=== PATIENT | female | born 1965 | race Caucasian/White ===

== ENCOUNTER 2021-01-27 16:04 | Outpatient (REF) | payer BC, SELFPAY | END 2021-01-27 16:05 | disposition home or self-care (01) | LOC: HO.MRI 16:04 | PROVIDERS: PCP Internal Medicine; Visit Provider Internal Medicine | DX: Z13.89 Encounter for screening for other disorder (principal) ==

== ENCOUNTER 2021-05-26 10:55 | Emergency (ER) | payer OTHER, SELFPAY ==
--- NOTE | 2021-05-26 10:59 | ED_ITS ---
HPI - General Adult General Chief complaint: Wound/Laceration Stated complaint: lip lac/wound - work INJ Time Seen by Provider: 05/26/21 10:59 Source: patient and family Mode of arrival: ambulatory Limitations: no limitations History of Present Illness HPI narrative: 55 yo female here with trip and fall hitting face on file cabinet while working, landing on bilateral knees. NO LOC. Now c/o dizziness,right sided neck pain, bilateral knee pain, laceration to upper lip. Tetanus UTD. NO headache, vision changes, paresthesias, chest pain, abdominal pain, back pain, vomiting. Related Data Allergies Allergy/AdvReac Type Severity Reaction Status Date / Time penicillin V Allergy Unknown Verified 10/18/12 00:00 Penicillins [PCN] Allergy Unknown HIVES Unverified 11/21/19 16:02 Sulfa (Sulfonamide Allergy Unknown Verified 10/18/12 00:00 Antibiotics) Review of Systems Review of Systems: Yes all other systems are reviewed and are negative Constitutional: Constitutional: Reports no additional constitutional com plaints, Denies body ache(s), Denies chills, Denies fever(s), Denies headache(s) and Denies weakness Eyes: Eyes: Reports no additional eye complaints and Denies change in vision ENT: Reports system reviewed and no additional complaints, except as documented, Reports dizziness, Denies headache(s), Denies nasal congestion, Denies nasal discharge and Reports neck pain Cardiovascular: Cardiovascular: Reports no additional cardiovascular complaints, Denies chest pain, Denies leg edema and Denies dyspnea Respiratory: Respiratory: Reports no additional respiratory complaints, Denies cough and Denies dyspnea Gastrointestinal: Gastrointestinal: Reports no additional gastrointestinal complaints, Denies abdominal pain, Denies diarrhea, Denies nausea and Denies vomiting Genitourinary: Genitourinary: Reports no additional female genitourinary complaints and Denies urinary incontinence Musculoskeletal: Musculoskeletal: Reports no additional musculoskeletal complaints, Denies back pain, Reports arthralgias, Denies joint swelling, Reports neck pain, Denies numbness and Denies tingling Integumentary/Breasts: Skin/Breast: Reports system reviewed and no additional complaints, except as docu and Denies rash Comments: +laceration Neurologic: Reports system reviewed and no additional complaints, except as documented, Reports dizziness, Denies headache(s), Denies numbness, Denies tingling and Denies weakness [facility] Past Medical History Attestation statement: The following information was validated with the patient. Source: old records reviewed and nursing notes reviewed Social History Social History Advance Directives: No Advance Directives Information Provided: No Patient : No Physical Exam ED Vital Signs: Vital Signs - 24 hr 05/26/21 11:02 Temperature 98.7 F Pulse Rate 72 Respiratory Rate 16 Blood Pressure 155/84 H Pulse Oximetry 100 BMI result Body Mass Index 23.1 Const General: cooperative, healthy appearing, comfortable and no acute distress Orientation/consciousness: patient oriented x3 Limitations: no limitations HENMT Head: Yes normal to inspection, No Barragan's sign and No raccoon eyes Ears: hearing grossly normal bilaterally and TM's normal bilaterally General nose exam: Normal external nose present and no epistaxis Nose image: 1. 2cm laceration to the right upper lip which crosses to the desire border Face and sinus: Yes normal facial exam, Yes face symmetric, No crepitus, No ecchymosis, No erythema, No edema and No fluctuance Mouth: Normal oral and palatal mucosa present, tongue normal and no trismus Teeth and gingiva: dentition normal Throat: Yes posterior oropharynx normal, Yes tonsils normal and Yes uvula midline Eyes General: appearance normal, both eyes and all related structures Pupils: Equal, round and reactive pupils present Neck Other: No cervical midline tenderness, step offs or deformities There is some tenderness to the right side of the neck with no swelling, crepitus, ecchymosis noted. Neck: Yes normal visual inspection, Yes full ROM, Yes no lymphadenopathy and Yes no meningeal signs Chest Chest palpation & inspection: normal inspection of the chest Resp Effort & Inspection: normal respiratory effort Auscultation: clear to auscultation bilaterally Cardio Rate: regular rate Rhythm: regular rhythm Peripheral pulses: Peripheral pulses 2+ throughout GI Inspection: Yes normal to inspection Palpation (GI): Soft to palpation and nontender General: Yes no CVA tenderness Back/Spine/Pelvis Back: no CVA tenderness Thoracic/Lumbar Spine: thoracic and lumbar spine normal to inspection Skin General skin exam: no rashes or lesions noted Neuro General: patient oriented x3, moves all extremities and no meningeal signs Cranial nerves: Yes CN's II-XII intact bilaterally, Yes Equal, round and re active pupils present, Yes Bilaterally intact EOM present, Yes Nystagmus not present, Yes Normal facial strength present and Yes Midline tongue present Cognition (Neuro): normal cognition Gait exam (Neuro): Normal gait present Motor exam (neuro): 5/5 motor strength present throughout Sensory Exam: Normal double simultaneous stimulation for sensation Coordination: tandem gait normal Extrem General: Yes normal to inspection, Yes no pedal edema and Yes no calf tenderness Course Course Course Narrative: 55 yo female here with complaints to laceration to the upper lip, dizziness, right sided neck pain, bilateral knee pain s/p mechanical fall which occurred at work just [employer]. VSS. Normal neurological exam. No cervical midline tenderness, step offs or deformities. Mild soft tissue tenderness to the right side of the neck with no swelling, ecchymosis or crepitus noted. FROM of both knees. Patient ambulatory. Patient does have a 2cm laceration of the right upper lip which crosses the desire border. She wants this repaired by a plastic surgeon. I explained to her that we do not have a plastic surgeon here at [facility]. She would like to check out as a patient and seek a hospital that does have a plastic surgeon front tender. She declined imaging here at [facility] and would prefer to have all her care at one hospital. A&Ox4. Here with family who will bring the patient. I did call [facility] and they do have a plastic surgeon front tender. She will go there. Medical Decision Making Medical Records Medical records reviewed: Yes I reviewed the patient's medical records. Lab Data Lab results reviewed: Yes I reviewed the patient's lab results. Discharge Plan Discharge Clinical Impression: Laceration of lip Patient Disposition: Xfer Other Transfer Details: leaving by car to go to [facility] ER Instructions: Facial Laceration (ED) Additional Instructions: You declined imaging and wound repair here at [facility]. You elected to go to [facility] ER to be seen by the emergency department physician and to request a plastic surgeon consult. Referrals: Dash Kinsey MD [Primary Care Provider] - 1 week (as needed)
[2021-05-26 11:02] VITALS: BP 155/84; PULSE 72; RESP 16; TEMP 37.1; O2SAT 100; BMI 23.1
== END 2021-05-26 11:30 | disposition home or self-care (01) ==
PROVIDERS: Emergency Provider Emergency Medicine; PCP Internal Medicine
DX: S01.511A Laceration without foreign body of lip, initial encounter (principal); M54.2 Cervicalgia; M25.562 Pain in left knee; M25.561 Pain in right knee; R42 Dizziness and giddiness; X58.XXXA Exposure to other specified factors, initial encounter; Y93.9 Activity, unspecified; Y92.9 Unspecified place or not applicable; Y99.0 Civilian activity done for income or pay
CPT/HCPCS: 99282; 99283